=== PATIENT | female | born 1970 | race Caucasian/White ===

== ENCOUNTER → 2020-04-23 | Emergency (ER) | payer MEDICAID ==
[~2020-04-23] VITALS: Ht 175.3 cm; Wt 77.1 kg
[~2020-04-23] MED LIST: BACLOFEN 10MG T10 MG PO; MELATONIN10 M3 PO; NEURONTIN 300M300 M2 PO; OXYCODONE HCL E10 MG PO; RESTORIL15 M1 PO
[2020-04-23 20:23] VITALS: BP 122/83
== END ==
LOC: M.ERS 20:09
DX: T83.028A Displacement of other urinary catheter, initial encounter (principal); I10 Essential (primary) hypertension; F17.210 Nicotine dependence, cigarettes, uncomplicated; Z79.899 Other long term (current) drug therapy; Z88.5 Allergy status to narcotic agent; Y84.8 Other medical procedures as the cause of abnormal reaction of the patient, or of later complication, without mention of misadventure at the time of the procedure; Y92.89 Other specified places as the place of occurrence of the external cause